=== PATIENT | female | born 1955 | race Caucasian/White ===

== ENCOUNTER 2022-04-25 11:14 | Outpatient (CLI) | payer MEDICARE, BC, SELFPAY ==
[2022-04-25] MEDS: BRIMONIDINE TARTRATE 0.2% OPHTH 1 DROP EYE-BOTH ×2 (11:27→12:24)
[2022-04-25] MEDS: TETRACAINE 0.5% OPHTH 1 DROP EYE-BOTH ×3 (11:27→12:09)
[2022-04-25 11:33] VITALS: BP 122/78; RESP 16; O2SAT 100
--- NOTE | 2022-04-25 15:18 | PM.PROC ---
Procedure Note Will [facility] bill your pro fee for this procedure?: Yes Procedure: SURGEON: Tierney Tineo MD PREOPERATIVE DIAGNOSIS: Posterior capsular opacity, right and left eye POSTOPERATIVE DIAGNOSIS: Posterior capsular opacity, right and left eye PROCEDURE: YAG laser capsulotomy, both eyes ANESTHESIA: Topical. ESTIMATED BLOOD LOSS: None PATHOLOGY SPECIMEN: None COMPLICATIONS: None INDICATIONS: See consult note for details. The risks, benefits and alternatives of the procedure were explained to the patient, who elected to proceed and signed informed consent to do so. PROCEDURE: The patient was brought to the pre-holding area where the right and left eyes were identified as the operative eyes. I placed my initials above the eyes. The following was given in both eyes: The patient received 2 sets of 1 drop of 0.5% tetracaine and 1 drop of 1% tropicamide. They also received 1 drop of 0.2% brimonidine. They received 1 drop of 0.5% tetracaine immediately prior to bringing them back for the procedure. The patient was then brought to the procedure room where the right and left eyes were again identified as the operative eyes. A YAG David capsulotomy lens was placed on the right eye. The laser was administered using a total number of 10 shots with an energy of 2.4 mJ per shot for a total energy of 24 mJ. The patient tolerated the procedure well. A YAG David capsulotomy lens was placed on the left eye. The laser was administered using a total number of 11 shots with an energy of 2.4 mJ per shot for a total energy of 26 mJ. The patient tolerated the procedure well. DISPOSITION: The patient was taken back to the pre-holding area and given 1 drop of 0.2% brimonidine in both eyes. They were discharged to home in stable condition. The patient was instructed to call me or go to the emergency department with any sudden change, including dramatic loss of vision, severe pain in the eye or eyebrow region, nausea, or vomiting. The patient was instructed to use the 0.2% brimonidine 1 drop 2 times a day in both eyes for 1 week. The patient will follow up in the clinic in 1-2 weeks.
== END 2022-04-25 12:30 | disposition home or self-care (01) ==
PROVIDERS: PCP Internal Medicine; Visit Provider Ophthalmology
DX: H26.9 Unspecified cataract (principal)
CPT/HCPCS: 66821; A9270

== ENCOUNTER 2022-04-26 08:01 | Outpatient (CLI) | payer MEDICARE, BC, SELFPAY ==
--- NOTE | 2022-04-26 08:15 | CRLHL7_ITS ---
For Patients: As a result of the Century Cures Act, medical imaging exams and procedure reports are released immediately into your electronic medical record. You may view this report before your referring provider. If you have questions, please contact your health care provider. BILATERAL MAMMOGRAM WITH COMPUTER-AIDED DETECTION AND TOMOSYNTHESIS TECHNIQUE: CC and MLO views were obtained. These mammographic images have been obtained using full-field digital technique. These mammographic images were interpreted with the benefit of computer-aided detection. Breast Tomosynthesis was used in this interpretation. COMPARISON FILM: 04/16/2019, 03/17/2015. FINDINGS: There are scattered areas of fibroglandular density IMPRESSION: There is no radiographic evidence for malignancy. ASSESSMENT: BI-RADS Category 2: Benign RECOMMENDATION: Routine screening mammogram in 1 year. A lay language report of this examination will be provided to the patient. Maday Corrales M.D. Diagnostic/Breast Radiologist [email or web address] BERE/Dictated by: Maday Corrales MD @ 04/26/2022 8:59:00 AM (Electronically Signed)
== END 2022-04-26 08:02 | disposition home or self-care (01) ==
LOC: MAMMO 08:08
PROVIDERS: PCP Internal Medicine; Visit Provider Internal Medicine
DX: Z12.31 Encounter for screening mammogram for malignant neoplasm of breast (principal); R92.8 Other abnormal and inconclusive findings on diagnostic imaging of breast
CPT/HCPCS: 77063; 77067

== ENCOUNTER 2022-07-16 11:33 | Outpatient (CLI) | payer MEDICARE, BC, SELFPAY ==
[2022-07-16 10:40] LABS: Albumin* 4.4 g/dL (3.3-5.0); Chloride* 105 mmol/L (96-114)
[2022-07-16 10:41] LABS: Sodium* 137 mmol/L (135-149)
[2022-07-16 10:43] LABS: Bilirubin Total* 0.6 mg/dL (0.1-1.5); Carbon Dioxide* 21 mmol/L (20-32); Creatinine* 0.6 mg/dL (0.5-1.5); Estimated Glomerular Filt Rate 98 ml/min
[2022-07-16 10:44] LABS: Alanine Aminotransferase* 23 U/L (4-35); Alkaline Phosphatase* 82 U/L (40-150); Blood Urea Nitrogen* 16 mg/dL (7-30); Calcium* 9.2 mg/dL (8.4-10.6); Glucose* 114 mg/dL (60-115)
== END 2022-07-16 11:34 | disposition home or self-care (01) ==
PROVIDERS: PCP Internal Medicine; Visit Provider Dermatology
DX: Z79.899 Other long term (current) drug therapy (principal)
CPT/HCPCS: 80053

== ENCOUNTER 2022-10-08 08:55 | Outpatient (CLI) | payer MEDICARE, BC, SELFPAY ==
[2022-10-08 12:32] LABS: Cholesterol* 195 mg/dL (90-199); Triglycerides* 117 mg/dL (40-149)
[2022-10-08 12:33] LABS: HDL Cholesterol* 39 mg/dL (>=50); LDL Cholesterol Calculated 133 mg/dL (<100)
[2022-10-08 12:43] LABS: Creatinine Urine 147.8 mg/dL
[2022-10-08 12:48] LABS: Microalbumin Creatinine Ratio 10 mg/g (0-30); Microalbumin Urine 2 mg/dL
== END 2022-10-08 08:56 | disposition home or self-care (01) ==
PROVIDERS: PCP Internal Medicine; Visit Provider Internal Medicine
DX: E11.29 Type 2 diabetes mellitus with other diabetic kidney complication (principal); E11.9 Type 2 diabetes mellitus without complications; R80.9 Proteinuria, unspecified; E66.9 Obesity, unspecified; E78.5 Hyperlipidemia, unspecified; Z79.899 Other long term (current) drug therapy
CPT/HCPCS: 80061; 82043; 82570

== ENCOUNTER 2023-04-29 08:50 | Outpatient (CLI) | payer MEDICARE, BC, SELFPAY ==
--- NOTE | 2023-04-29 09:15 | CRLHL7_ITS ---
For Patients: As a result of the Cures Act, medical imaging exams and procedure reports are released immediately into your electronic medical record. You may view this report before your referring provider. If you have questions, please contact your health care provider. BILATERAL SCREENING MAMMOGRAM WITH COMPUTER-AIDED DETECTION AND TOMOSYNTHESIS TECHNIQUE: CC and MLO views were obtained. These mammographic images have been obtained using full-field digital technique. These mammographic images were interpreted with the benefit of computer-aided detection. Breast Tomosynthesis was used in this interpretation. COMPARISON FILM: 04/26/22, 04/25/21, 04/21/20. FINDINGS: There are scattered areas of fibroglandular density IMPRESSION: There is no radiographic evidence for malignancy. ASSESSMENT: BI-RADS Category 2: Benign RECOMMENDATION: Routine screening mammogram in 1 year. A lay language report of this examination will be provided to the patient. Mono Rodriguez M.D. Diagnostic Radiologist [email or web address]/[email or web address] / be/Dictated by: Mono Rodriguez MD @ 04/29/2023 11:11:00 AM (Electronically Signed)
== END 2023-04-29 08:51 | disposition home or self-care (01) ==
LOC: MAMMO 08:52
PROVIDERS: PCP Internal Medicine; Visit Provider Internal Medicine
DX: Z12.31 Encounter for screening mammogram for malignant neoplasm of breast (principal)
CPT/HCPCS: 77063; 77067

== ENCOUNTER 2024-11-17 08:00 | Outpatient (CLI) | payer MEDICARE, BC, SELFPAY ==
--- NOTE | 2024-11-17 08:15 | CRLHL7_ITS ---
For Patients: As a result of the Century Cures Act, medical imaging exams and procedure reports are released immediately into your electronic medical record. You may view this report before your referring provider. If you have questions, please contact your health care provider. BILATERAL SCREENING MAMMOGRAM WITH COMPUTER-AIDED DETECTION AND TOMOSYNTHESIS TECHNIQUE: CC and MLO views were obtained. These mammographic images have been obtained using full-field digital technique. These mammographic images were interpreted with the benefit of computer-aided detection. Breast Tomosynthesis was used in this interpretation. COMPARISON FILM: 04/29/23, 04/26/22, 04/25/21. FINDINGS: There are scattered areas of fibroglandular density. IMPRESSION: There is no radiographic evidence for malignancy. ASSESSMENT: BI-RADS Category 2: Benign RECOMMENDATION: Routine screening mammogram in 1 year. A lay language report of this examination will be provided to the patient. Saleem Livingston M.D. Diagnostic/Nuclear Medicine Radiologist [email or web address] [email or web address]/[email or web address] SP/Dictated by: Saleem Livingston MD @ 11/19/2024 9:04:00 AM (Electronically Signed)
== END 2024-11-17 08:01 | disposition home or self-care (01) ==
LOC: MAMMO 08:02
PROVIDERS: PCP Internal Medicine; Visit Provider Internal Medicine
DX: Z12.31 Encounter for screening mammogram for malignant neoplasm of breast (principal)
CPT/HCPCS: 77063; 77067

== ENCOUNTER 2025-02-08 07:52 | Outpatient (CLI) | payer MEDICARE, BC, SELFPAY | END 2025-02-08 07:53 | disposition home or self-care (01) | LOC: NFLDREF 02-10 05:52 | PROVIDERS: PCP Internal Medicine; Referring Provider Internal Medicine; Visit Provider Internal Medicine | DX: E78.5 Hyperlipidemia, unspecified (principal); E11.29 Type 2 diabetes mellitus with other diabetic kidney complication; R80.9 Proteinuria, unspecified | CPT/HCPCS: 80053; 80061; 82043; 82570 ==

== ENCOUNTER 2025-05-11 07:50 | Outpatient (CLI) | payer MEDICARE, BC, SELFPAY | END 2025-05-11 07:51 | disposition home or self-care (01) | LOC: NFLDREF 05-12 16:06 | PROVIDERS: PCP Internal Medicine; Referring Provider Internal Medicine; Visit Provider Internal Medicine | DX: E11.29 Type 2 diabetes mellitus with other diabetic kidney complication (principal); R80.9 Proteinuria, unspecified | CPT/HCPCS: 82043; 82570 ==

== ENCOUNTER 2025-05-11 07:58 | Outpatient (CLI) | payer MEDICARE, BC, SELFPAY ==
[2025-05-11] MEDS: REGADENOSON 0.4 MG/5 ML SYRINGE IVP (09:53)
[2025-05-11] MEDS: SODIUM CHLORIDE 0.9 % (FLUSH) 10 ML SYRINGE IVF (09:54)
[2025-05-11 11:14] VITALS: BP 153/77; PULSE 78; RESP 18
--- NOTE | 2025-05-11 11:23 | P.STN_ITS ---
Stress Test Note Date Date Seen: 05/11/25 Date of test: 05/11/25 Providers Referring provider: Mono Shaw Primary care provider: Vicki Bourgeois Stress test physician: Nicole Peraza Stress Test Note Stress test ordered: Lexiscan Indication for test: CAD, PAD Stress test medicine: Lexiscan Results discussion: Resting EKG: Sinus rhythm, 69 beats per minute. Some artifact noted. Flipped T-waves lead V1 and [address] segment change. Resting blood pressure: 189/81 Stress test: Patient is consented on ordered stress test of Lexiscan and agrees to proceed. She did a walking Lexiscan. With the infusion of the regadenoson, had some short lived very mild shortness of breath, chest heaviness and mild headache all of which were gone by termination of the test. She had no arrhythmia, no EKG changes diagnostic of ischemia during monitoring. Patient will have post stress nuclear medicine imaging done, await nuclear med imaging to couple this for a full formal diagnostic. Impression: Mild subjective symptoms with infusion but objectively negative EKG changes of this Lexiscan. Follow up suggested: Patient's discharge from this portion of this stress test in stable condition and will be discharged to home once her pose stress nuclear medicine images are obtained. She has a follow-up with Dr. Bourgeois this . Did review with her that the stress test will likely be done by then and Dr. Draper in should be able to see this scanned in. Otherwise, I am sure her retirement plan counselor will update her on the test results as well.
== END 2025-05-11 11:16 | disposition home or self-care (01) ==
PROVIDERS: PCP Internal Medicine; Visit Provider Internal Medicine Cardiovascular Disease
DX: I25.10 Atherosclerotic heart disease of native coronary artery without angina pectoris (principal); I10 Essential (primary) hypertension; E78.00 Pure hypercholesterolemia, unspecified; Z82.49 Family history of ischemic heart disease and other diseases of the circulatory system
CPT/HCPCS: 78452; 93016; 93017; A9500; J2785

== ENCOUNTER 2025-05-13 10:22 | Outpatient (CLI) | payer MEDICARE, BC, SELFPAY | END 2025-05-13 10:23 | disposition home or self-care (01) | LOC: NFLDREF 05-15 08:33 | PROVIDERS: PCP Internal Medicine; Referring Provider Internal Medicine; Visit Provider Internal Medicine | DX: E11.29 Type 2 diabetes mellitus with other diabetic kidney complication (principal); R30.0 Dysuria; R80.9 Proteinuria, unspecified; I25.10 Atherosclerotic heart disease of native coronary artery without angina pectoris | CPT/HCPCS: 87086 ==

== ENCOUNTER 2025-09-10 07:56 | Outpatient (CLI) | payer MEDICARE, BC, SELFPAY | END 2025-09-10 07:57 | disposition home or self-care (01) | LOC: NFLDREF 09-15 17:51 | PROVIDERS: PCP Internal Medicine; Referring Provider Internal Medicine; Visit Provider Internal Medicine | DX: E11.9 Type 2 diabetes mellitus without complications (principal) | CPT/HCPCS: 80061; 82043; 82570 ==

== ENCOUNTER 2025-09-28 07:54 | Outpatient (CLI) | payer MEDICARE, BC, SELFPAY ==
--- NOTE | 2025-09-28 08:15 | CRLHL7_ITS ---
For Patients: As a result of the Century Cures Act, medical imaging exams and procedure reports are released immediately into your electronic medical record. You may view this report before your referring provider. If you have questions, please contact your health care provider. Technique: Double-contrast esophagram performed after the uneventful administration of effervescent crystals and thick barium followed by thin barium. Fluoroscopy time 1 minute 29 seconds. Indication: Dysphagia, unspecified Comparison: None. Findings: Esophagus: Normal morphology and motility. No stricture or mass. Gastroesophageal reflux: Mild spontaneous reflux noted to the proximal esophagus. Impression: Spontaneous reflux. Remainder unremarkable. Dictated by Mono Rodriguez MD @ 09/28/2025 10:09:53 AM (Electronically Signed)
== END 2025-09-28 07:55 | disposition home or self-care (01) ==
LOC: RAD 07:55
PROVIDERS: PCP Internal Medicine; Visit Provider Internal Medicine
DX: R13.10 Dysphagia, unspecified (principal); K21.9 Gastro-esophageal reflux disease without esophagitis
CPT/HCPCS: 74221